=== PATIENT | female | born 1990 | race Caucasian/White ===

== ENCOUNTER 2021-12-18 07:48 | Inpatient (IN) | payer MEDICAID ==
[2021-12-15 16:11] LABS: ALBUMIN 4.2 G/DL (3.4-5.0); ALBUMIN/GLOBULIN RATIO 1.1 (1.1-1.5); ALKALINE PHOSPHATASE 57 IU/L (46-116); BLOOD UREA NITROGEN 6 MG/DL (7-18); BUN/CREATININE RATIO 8.2 (6.6-38.0); CALCIUM 9.2 MG/DL (8.5-10.1); CHLORIDE 106 MMOL/L (99-107); CREATININE 0.73 MG/DL (0.40-0.90); PRE OP ALT 31 U/L (30-65); PRE OP ANION GAP 11 (8-16); PRE OP AST 22 U/L (10-37); PRE OP BILIRUB, TOTAL 0.7 MG/DL (0.0-1.0); PRE OP GLUCOSE 91 MG/DL (70-104); PRE OP POTASSIUM 3.7 MMOL/L (3.4-5.1); PRE OP SODIUM 144 MMOL/L (135-145); TOTAL CARBON DIOXIDE 26.8 MMOL/L (24-32); TOTAL PROTEIN 8.1 G/DL (6.4-8.2); eGFR > 90 ML/MIN
[2021-12-15 16:15] LABS: BASOPHILS # (AUTO) 0.1 X10'3 (0-0.2); BASOPHILS % (AUTO) 0.7 % (0-1); EOSINOPHILS # (AUTO) 0.1 X10'3 (0-0.9); EOSINOPHILS % (AUTO) 1.2 % (0-6); LYMPHOCYTES # (AUTO) 3.5 X10'3 (1.1-4.8); LYMPHOCYTES % (AUTO) 29.8 % (21-51); MEAN CORPUSCULAR HEMOGLOBIN 27.3 PG (27.0-31.0); MEAN CORPUSCULAR HGB CONC 33.4 g/dL (33.0-36.5); MEAN CORPUSCULAR VOLUME 81.6 FL (78-98); MEAN PLATELET VOLUME 7.6 FL (7.4-10.4); MONOCYTES # (AUTO) 0.8 X10'3 (0-0.9); MONOCYTES % (AUTO) 7.1 % (2-12); NEUTROPHILS # (AUTO) 7.1 X10'3 (1.8-7.7); NEUTROPHILS % (AUTO) 61.2 % (42-75); PRE OP HEMATOCRIT 49.2 % (35.0-45.0); PRE OP HEMOGLOBIN 16.4 g/dL (12.0-16.0); PRE OP PLATELET COUNT 488 X10'3 (140-440); RED BLOOD COUNT 6.02 X10'6 (4.20-5.60); RED CELL DISTRIBUTION WIDTH 13.3 % (11.5-14.5)
[2021-12-15 16:16] LABS: HCG SERUM QL NEGATIVE
[~2021-12-18] VITALS: Ht 170.2 cm; Wt 91.2 kg
[2021-12-18] VITALS (30 sets, daily range): BP systolic 119–199; BP diastolic 54–117
[~2021-12-18 07:48] MED LIST: CRAN450T4 PO; ELDE1CAP PO; LYSI100013 PO; MULT-1085 PO; clindamycin-Cleocin 900mg/D5W 50 ML IV ONE; famotidine 20mg tablet PO ONE
[2021-12-18] MEDS ORDERED: ondansetron/PF 4mg/2ml inj ONE ×2 (08:36→13:26)
[2021-12-18] MEDS: ringers solution, lacted 1,000 ML IV SCH ×4 (08:41→22:28)
[2021-12-18] MEDS ORDERED: lidocaine 1%/epinephrine 1:100,000 inj. 50ml multi-dose vial ONE (10:24)
[2021-12-18] MEDS ORDERED: BUPIVAcaine 0.5% inj/PF 30 ML ONE ×2 (10:24→10:27)
[2021-12-18] MEDS ORDERED: vasoPRESSIN 20 units/ml inj. ONE (10:27)
[2021-12-18] MEDS ORDERED: clindamycin phosphate 40gm vag cream ONE (10:27)
[2021-12-18] MEDS ORDERED: fentaNYL /PF 50mcg/ml 5ml ampule ONE (10:39)
[2021-12-18] MEDS ORDERED: propofol inj 20 ML IV ONE (10:39)
[2021-12-18] MEDS ORDERED: midazolam 1 mg/ML 2ml injection ONE (10:39)
[2021-12-18] MEDS ORDERED: rocuronium 10mg/ml inj IV ONE (10:39)
[2021-12-18] MEDS ORDERED: dexamethasone sod phosphate 4mg/ml inj. ONE ×2 (11:19→12:59)
[2021-12-18] MEDS ORDERED: ringers solution, lacted 1,000 ML IV SCH (11:35)
[2021-12-18] MEDS ORDERED: ondansetron/PF 4mg/2ml inj IV PRN (11:35)
[2021-12-18] MEDS ORDERED: meperidine/PF 25mg/ml syringe IV PRN ×3 (11:35)
[2021-12-18] MEDS ORDERED: morphine 4 MG/ML inj SYRINge IV PRN (11:35)
[2021-12-18] MEDS ORDERED: morphine 2 MG/ML inj. syringe IV PRN (11:35)
[2021-12-18] MEDS ORDERED: BUPIVAcaine 0.5% inj/PF 30 ml vial IJ ONE (12:25)
[2021-12-18] MEDS ORDERED: acetaminophen 1,000mg/100ml IV 100 ML IV ONE (12:59)
[2021-12-18] MEDS ORDERED: fluoroscein sod 10% (100mg/ml) 5ml vial ONE (13:20)
[2021-12-18] MEDS ORDERED: sugammadex 200mg/2ml injection IV ONE (13:44)
[2021-12-18] MEDS ORDERED: oxyCODONE/APAP 5-325mg tablet PO PRN ×2 (13:55)
[2021-12-18] MEDS ORDERED: CADD PCA waste documentation MC PRN (13:55)
[2021-12-18] MEDS ORDERED: naloxone 0.4 mg/ml inj IV PRN (13:55)
[2021-12-18] MEDS ORDERED: mag hydrox/Alum hydrox/simeth 30ml oral suspension PO PRN (13:55)
[2021-12-18] MEDS ORDERED: diphenhydrAMINE 50 mg/ml inj IV PRN (13:55)
[2021-12-18] MEDS ORDERED: LORazepam 2 mg/ml vial IV PRN (13:55)
[2021-12-18] MEDS ORDERED: temazepam 15mg capsule PO PRN (13:55)
[2021-12-18] MEDS ORDERED: normal saline 500ML IV soln IV PRN (13:55)
--- NOTE | 2021-12-18 14:00 | NUR ---
Received from OR via BED, accompanied by Anesthesiologist DR HYLTON and report given by Anesthesiologist AND ACCOUNTANT TAX. PT VERY DROWSY, NO S/S OF DISTRESS/DISCOMFORT, ABD W/3 LAP SITES W/BANDAIDS CDI, OSVALDO PAD IN PLACE, ESCOBAR CATHETER TO GRAVITY DRAINAGE W/BRIGHT YELLOW URINE IN DRAINAGE BAG. Addendum: 12/18/21 at 1429 by Makenzie Zuniga RN Amended: Links added.
[2021-12-18] MEDS: proCHLORperazine 10 MG/2 ml inj IV PRN ×2 (14:38→15:07)
[2021-12-18] MEDS: ketorolac trometh. 30mg/ml inj. IV PRN (14:45)
[2021-12-18] MEDS ORDERED: HYDROmorph./NS 0.2 mg/ml CADD 50 ML IV SCH (15:00)
[2021-12-18] MEDS: hydrALAZINE 20mg/ml inj. IV PRN ×3 (15:13→15:38)
[2021-12-18] MEDS: ondansetron/PF 4mg/2ml inj IV PRN (15:37)
[2021-12-18] MEDS: HYDROmorph./NS 0.2 mg/ml CADD 50 ML IV SCH ×4 (15:59→23:00)
[2021-12-18] MEDS ORDERED: labetalol 5mg/ml 20ml inj. IV PRN (16:10)
[2021-12-18] MEDS ORDERED: labetalol 20mg/4ml (5mg/ml) syringe IV ONE (16:12)
[2021-12-18] MEDS ORDERED: labetalol 20mg/4ml (5mg/ml) syringe IV PRN (16:25)
--- NOTE | 2021-12-18 17:10 | NUR ---
Report called to receiving nurse. Transferred via BED W/1 BLACK BACKPACK AND 1 BAG OF SHOES SENT W/PT TO ROOM 346A, BLL, CALL LIGHT GIVEN, SIDE RAILS UP X 3, RECEIVING RN AT BEDSIDE. Special Issues communicated to receiving nurse. YES. Addendum: 12/18/21 at 1731 by Makenzie Zuniga RN Amended: Links added.
--- NOTE | 2021-12-18 18:27 | NUR ---
Problems reprioritized. Patient report given, questions answered & plan of care reviewed with NAVDEEP De Paz.
[2021-12-18] MEDS: docusate sod 100mg capsule PO SCH (19:42)
[2021-12-18] MEDS: simethicone 80mg chew tab PO SCH (19:42)
[2021-12-19] VITALS: BP 152/103
[2021-12-19] MEDS: HYDROmorph./NS 0.2 mg/ml CADD 50 ML IV SCH ×3 (01:00→05:00)
[2021-12-19 04:00] VITALS: BP 146/97
[2021-12-19] MEDS: ringers solution, lacted 1,000 ML IV SCH (06:00)
--- NOTE | 2021-12-19 06:12 | NUR ---
Patient in room [facility] 346. I have received report from NAVDEEP De Paz and had the opportunity to ask questions and assume patient care.
--- NOTE | 2021-12-19 06:17 | NUR ---
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 pt will ambulate this am
[2021-12-19 06:33] LABS: BASOPHILS % (AUTO) 0.2 % (0-1); EOSINOPHILS % (AUTO) 0 % (0-6); HEMATOCRIT 44.9 % (35.0-45.0); HEMOGLOBIN 14.8 g/dl (12.0-16.0); LYMPHOCYTES # (AUTO) 2.3 X10'3 (1.1-4.8); LYMPHOCYTES % (AUTO) 11.3 % (21-51); MEAN CORPUSCULAR HEMOGLOBIN 27.3 PG (27.0-31.0); MEAN CORPUSCULAR HGB CONC 33.1 g/dL (33.0-36.5); MEAN CORPUSCULAR VOLUME 82.4 FL (78-98); MEAN PLATELET VOLUME 7.5 FL (7.4-10.4); MONOCYTES # (AUTO) 1.3 X10'3 (0-0.9); MONOCYTES % (AUTO) 6.4 % (2-12); NEUTROPHILS # (AUTO) 16.5 X10'3 (1.8-7.7); NEUTROPHILS % (AUTO) 82.1 % (42-75); PLATELET COUNT 440 X10'3 (140-440); RED BLOOD COUNT 5.44 X10'6 (4.20-5.60); RED CELL DISTRIBUTION WIDTH 13.6 % (11.5-14.5); WHITE BLOOD COUNT 20.1 X10'3 (4.5-11.0)
[2021-12-19 06:39] LABS: ALBUMIN 3.7 G/DL (3.4-5.0); ANION GAP 8 (8-16); BLOOD UREA NITROGEN 6 MG/DL (7-18); BUN/CREATININE RATIO 12.2 (6.6-38.0); CALCIUM 8.6 MG/DL (8.5-10.1); CHLORIDE 103 MMOL/L (99-107); CREATININE 0.49 MG/DL (0.40-0.90); GLUCOSE 111 MG/DL (70-104); POTASSIUM 4.2 MMOL/L (3.5-5.1); SODIUM 138 MMOL/L (135-145); TOTAL CARBON DIOXIDE 26.8 MMOL/L (24-32); eGFR > 90 ML/MIN
[2021-12-19 08:00] VITALS: BP 179/105
[2021-12-19] MEDS: ondansetron/PF 4mg/2ml inj IV PRN (08:04)
[2021-12-19] MEDS: docusate sod 100mg capsule PO SCH (08:07)
[2021-12-19] MEDS: simethicone 80mg chew tab PO SCH (08:07)
[2021-12-19] MEDS: ketorolac trometh. 30mg/ml inj. IV PRN (08:07)
[2021-12-19] MEDS ORDERED: proMETHazine 25mg tablet PO ONE (09:05)
[2021-12-19] MEDS ORDERED: LORazepam 2 mg/ml vial IV ONE (09:05)
[2021-12-19] MEDS ORDERED: ONDA4TAB12 PO (09:11)
[2021-12-19 09:19] VITALS: BP 149/99
--- NOTE | 2021-12-19 11:00 | NUR ---
VS Haritha, rounded, pt was able to void numerous times post rhodes removal. Pt ambulated halls x3laps. Discharge care and instructions given with pt and spouse. Both verbalized understanding and asked appropriate questions. IV discontinued per protocol, no s/sx of complications, dressing applied. Pt escorted out via wheelchair and staff.
== END 2021-12-19 11:17 | disposition home or self-care (01) | DRG 513 ==
LOC: PAS 07:48 → OBSVTOIN 13:57 → SUR 3N 13:57
PROVIDERS: ADMIT Obstetrics & Gynecology; ATTEND Obstetrics & Gynecology
PROC: 0UT7FZZ Resection of Bilateral Fallopian Tubes, Via Natural or Artificial Opening With Percutaneous Endoscopic Assistance (ICD-10-PCS; 2021-12-18)
PROC: 0DNW4ZZ Release Peritoneum, Percutaneous Endoscopic Approach (ICD-10-PCS; 2021-12-18)
PROC: 0USG4ZZ Reposition Vagina, Percutaneous Endoscopic Approach (ICD-10-PCS; 2021-12-18)
PROC: 0TJB8ZZ Inspection of Bladder, Via Natural or Artificial Opening Endoscopic (ICD-10-PCS; 2021-12-18)
PROC: 0UT9FZZ Resection of Uterus, Via Natural or Artificial Opening With Percutaneous Endoscopic Assistance (ICD-10-PCS; principal; 2021-12-18 10:42)
DX: N92.0 Excessive and frequent menstruation with regular cycle (principal); F41.9 Anxiety disorder, unspecified; R03.0 Elevated blood-pressure reading, without diagnosis of hypertension; K66.0 Peritoneal adhesions (postprocedural) (postinfection); N81.4 Uterovaginal prolapse, unspecified
CPT/HCPCS: 36415; 80048; 80053; 82948; 84703; 85025; 86885; 86900; 86901; 87081; 87635; 93005; A4618; A6222; A6250; A7000; C1758; C9803; G0378; J0131; J0360; J0780; J1100; J1170; J1885; J2175; J2250; J2270; J2405; J2704; J3010; J3490; J7120; Q0169; S0020

== ENCOUNTER 2021-12-19 21:55 | Inpatient (IN) | payer MEDICAID ==
[~2021-12-19] VITALS: Ht 170.2 cm; Wt 88.2 kg
[~2021-12-19 21:55] MED LIST changes: +ONDA4TAB12 PO; -clindamycin-Cleocin 900mg/D5W 50 ML IV ONE; -famotidine 20mg tablet PO ONE
[2021-12-19 22:53] LABS: BASOPHILS % (AUTO) 0.1 % (0-1); HEMOGLOBIN 13.1 g/dl (12.0-16.0); LYMPHOCYTES # (AUTO) 2.4 X10'3 (1.1-4.8); RED CELL DISTRIBUTION WIDTH 13.1 % (11.5-14.5)
[2021-12-19 22:55] LABS: EOSINOPHILS % (AUTO) 0.1 % (0-6); HEMATOCRIT 39.2 % (35.0-45.0); LYMPHOCYTES % (AUTO) 9.7 % (21-51); MEAN CORPUSCULAR HEMOGLOBIN 27.4 PG (27.0-31.0); MEAN CORPUSCULAR HGB CONC 33.4 g/dL (33.0-36.5); MEAN CORPUSCULAR VOLUME 82.1 FL (78-98); MEAN PLATELET VOLUME 7.6 FL (7.4-10.4); MONOCYTES # (AUTO) 1.3 X10'3 (0-0.9); MONOCYTES % (AUTO) 5.1 % (2-12); NEUTROPHILS # (AUTO) 21.2 X10'3 (1.8-7.7); PLATELET COUNT 603 X10'3 (140-440); RED BLOOD COUNT 4.78 X10'6 (4.20-5.60); WHITE BLOOD COUNT 24.9 X10'3 (4.5-11.0)
[2021-12-19 23:02] LABS: ALANINE AMINOTRANSFERASE 24 U/L (12-78); ALBUMIN/GLOBULIN RATIO 1.3 (1.1-1.5); ALKALINE PHOSPHATASE 46 IU/L (46-116); ANION GAP 8 (8-16); ASPARTATE AMINO TRANSFERASE 14 U/L (10-37); BLOOD UREA NITROGEN 9 MG/DL (7-18); BUN/CREATININE RATIO 14.3 (6.6-38.0); CALCIUM 8.9 MG/DL (8.5-10.1); CHLORIDE 103 MMOL/L (99-107); CREATININE 0.63 MG/DL (0.40-0.90); GLUCOSE 173 MG/DL (70-104); LIPASE 99 U/L (73-393); POTASSIUM 4.3 MMOL/L (3.5-5.1); SODIUM 137 MMOL/L (135-145); TOTAL CARBON DIOXIDE 26.5 MMOL/L (24-32); TOTAL PROTEIN 7.1 G/DL (6.4-8.2); eGFR > 90 ML/MIN
[2021-12-19] MEDS ORDERED: normal saline 1000ML IV soln IV ONE (23:25)
[2021-12-19 23:26] LABS: PLATELET ESTIMATE INCREASED; TOTAL CELLS COUNTED 100
[2021-12-19 23:27] LABS: LARGE PLATELETS FEW
[2021-12-19] MEDS ORDERED: levoFLOXACIN-Levaquin 750MG/D5 150 ML IV STA (23:41)
[2021-12-19 23:48] LABS: MAGNESIUM 2.3 MG/DL (1.5-2.4)
[2021-12-20] VITALS (25 sets, daily range): BP systolic 127–159; BP diastolic 82–112
--- NOTE | 2021-12-20 00:10 | NUR ---
pt presents to the ed with c/o abd pain on intensity of 10/10 times one day; the pt describes the pain as aching sensation; the pt states she had a hysterectomy recently and now with pain.
[2021-12-20] MEDS ORDERED: morphine 4 MG/ML inj SYRINge IV ONE (01:00)
[2021-12-20] MEDS ORDERED: ondansetron/PF 4mg/2ml inj IV ONE (01:00)
--- NOTE | 2021-12-20 01:10 | NUR ---
pt heard and observed on stretcher crying, moaning, groaning and wrenching in pain; states her pain level is 10 on intensity/
--- NOTE | 2021-12-20 01:30 | NUR ---
pt medicated per mar
[2021-12-20] MEDS ORDERED: diphenhydrAMINE 25mg capsule PO PRN (02:20)
[2021-12-20] MEDS ORDERED: ondansetron/PF 4mg/2ml inj IV PRN ×4 (02:20→11:45)
[2021-12-20] MEDS ORDERED: ringers solution, lacted 1,000 ML IV SCH ×2 (02:20→10:35)
[2021-12-20] MEDS ORDERED: metoclopramide 5 mg/ml inj IV PRN ×2 (02:20→11:45)
[2021-12-20] MEDS ORDERED: HYDROmorphone inj. 0.5 MG/0.5 ML DISP.SYRIN IV PRN (02:20)
[2021-12-20 03:19] LABS: COLOR,URINE YELLOW (Yellow); GLUCOSE, URINE NEGATIVE (Neg); KETONES,URINE 15 mg/dl (Neg); LEUKOCYTE ESTERASE ,URINE NEGATIVE (Neg); NITRITES, URINE NEGATIVE (Neg); OCCULT BLOOD,URINE LARGE (Neg); PH,URINE 5.5 (4.8-8.0); PROTEIN,URINE NEGATIVE (Neg); URINE HCG NEGATIVE (NEG); UROBILINOGEN,URINE 0.2 E.U/dL (0.2-1.0)
[2021-12-20 03:25] LABS: CLARITY,URINE SLIGHTLY CLOUDY (Clear); UA COLLECTION TYPE NON-SPECIFIED
[2021-12-20 03:26] LABS: BACTERIA,URINE NONE SEEN /HPF (Neg); SQUAMOUS EPITHELIAL CELL,UR FEW /LPF (FEW); WBC,URINE NONE SEEN /HPF (0-4)
[2021-12-20 06:53] LABS: BASOPHILS % (AUTO) 0.1 % (0-1); EOSINOPHILS % (AUTO) 0 % (0-6); HEMATOCRIT 32.5 % (35.0-45.0); HEMOGLOBIN 10.8 g/dl (12.0-16.0); LYMPHOCYTES # (AUTO) 2.8 X10'3 (1.1-4.8); LYMPHOCYTES % (AUTO) 14.5 % (21-51); MEAN CORPUSCULAR HEMOGLOBIN 27.2 PG (27.0-31.0); MEAN CORPUSCULAR HGB CONC 33.2 g/dL (33.0-36.5); MEAN PLATELET VOLUME 7.5 FL (7.4-10.4); MONOCYTES # (AUTO) 1.4 X10'3 (0-0.9); MONOCYTES % (AUTO) 7.1 % (2-12); NEUTROPHILS % (AUTO) 78.3 % (42-75); PLATELET COUNT 458 X10'3 (140-440); RED BLOOD COUNT 3.97 X10'6 (4.20-5.60); RED CELL DISTRIBUTION WIDTH 13.3 % (11.5-14.5); WHITE BLOOD COUNT 19.2 X10'3 (4.5-11.0)
--- NOTE | 2021-12-20 06:59 | NUR ---
Pt C/o chest pain diffusely across upper chest. Pt states pain making it hard to breath. Pt with minimal effort at deep breath for auscultation. Pt rolled to her back for ekg says abd pain radiating and "could be the reason my chest hurts". Will eval EKG and pain meds
[2021-12-20 07:01] LABS: APTT 25 SECONDS (22-32)
[2021-12-20 07:05] LABS: ALBUMIN 3.4 G/DL (3.4-5.0); ANION GAP 6 (8-16); BLOOD UREA NITROGEN 7 MG/DL (7-18); BUN/CREATININE RATIO 12.7 (6.6-38.0); CALCIUM 8.3 MG/DL (8.5-10.1); CHLORIDE 106 MMOL/L (99-107); CREATININE 0.55 MG/DL (0.40-0.90); GLUCOSE 114 MG/DL (70-104); POTASSIUM 4.1 MMOL/L (3.5-5.1); SODIUM 140 MMOL/L (135-145); TOTAL CARBON DIOXIDE 27.8 MMOL/L (24-32); eGFR > 90 ML/MIN
[2021-12-20] MEDS ORDERED: clindamycin-Cleocin 900mg/D5W 50 ML IV ONE (08:10)
[2021-12-20] MEDS ORDERED: gentamicin in saline, iso-osm 80 MG/50 ML premix IV ONE (08:10)
[2021-12-20] MEDS: simethicone 80mg chew tab PO SCH ×3 (08:11→17:45)
[2021-12-20] MEDS ORDERED: gentamicin inj 80 MG in normal saline 100ml IV soln 98 ML IV ONE (09:00)
[2021-12-20] MEDS ORDERED: BUPIVAcaine 0.5% inj/PF 30 ML ONE ×2 (09:00→10:40)
[2021-12-20] MEDS ORDERED: gentamicin 40 MG/1 ML inj ONE (09:23)
[2021-12-20] MEDS ORDERED: clindamycin phosphate 150mg/ml inj. ONE (09:23)
[2021-12-20] MEDS ORDERED: fentaNYL /PF 50mcg/ml 5ml ampule ONE (09:33)
[2021-12-20] MEDS ORDERED: midazolam 1 mg/ML 2ml injection ONE (09:33)
[2021-12-20] MEDS ORDERED: rocuronium 10mg/ml inj IV ONE (09:33)
[2021-12-20] MEDS ORDERED: propofol inj 20 ML IV ONE (09:33)
[2021-12-20] MEDS ORDERED: meperidine/PF 25mg/ml syringe IV PRN ×3 (10:35)
[2021-12-20] MEDS ORDERED: morphine 4 MG/ML inj SYRINge IV PRN (10:35)
[2021-12-20] MEDS ORDERED: proCHLORperazine 10 MG/2 ml inj IV PRN (10:35)
[2021-12-20] MEDS ORDERED: morphine 2 MG/ML inj. syringe IV PRN (10:35)
[2021-12-20] MEDS ORDERED: TALC 4 GM VIAL ***intrapleural administration only IX ONE (10:40)
[2021-12-20] MEDS ORDERED: ondansetron/PF 4mg/2ml inj ONE (11:12)
[2021-12-20] MEDS ORDERED: dexamethasone sod phosphate 4mg/ml inj. ONE (11:12)
[2021-12-20] MEDS ORDERED: glycopyrrolate 0.2mg/ml inj ONE (11:42)
[2021-12-20] MEDS ORDERED: neostigmine methylsulfate 1 MG/ML 10ml vial ONE (11:42)
[2021-12-20] MEDS ORDERED: HYDROcodone/acetaminophen 5mg/325mg tablet PO PRN ×2 (11:45)
[2021-12-20] MEDS ORDERED: magnesium hydroxide 30ml (MOM) UD suspension PO PRN (11:45)
[2021-12-20] MEDS ORDERED: normal saline 500ML IV soln IV PRN (11:45)
[2021-12-20] MEDS ORDERED: diphenhydrAMINE 50 mg/ml inj IV PRN (11:45)
--- NOTE | 2021-12-20 11:45 | NUR ---
PT ARRIVED TO RR VIA BED ACCOMPANIED BY DR HYLTON-ANESTHESIA REPORT GIVEN, VSS, DENIES PAIN, 20 PIV TO R A/C, SCDS IN PLACE, BANDAIDS X 4-CDI WITH OSVALDO PAD SCANT DRAINAGE, F/C PRESENT-YELLOW URINE DRAINING.
[2021-12-20] MEDS ORDERED: naloxone 0.4 mg/ml inj IV PRN (12:00)
[2021-12-20] MEDS ORDERED: CADD PCA waste documentation MC PRN (12:00)
[2021-12-20] MEDS ORDERED: simethicone 80mg chew tab PO SCH (13:00)
[2021-12-20] MEDS: HYDROmorph./NS 0.2 mg/ml CADD 50 ML IV SCH ×7 (13:00→23:00)
--- NOTE | 2021-12-20 13:14 | NUR ---
PT AWAKE, RESTING QUIETLY, PAIN MUCH BETTER THAN BEFORE PROCEDURE 12/04, RAGHU MARIE STARTED-PT EDUCATED RE: USE, TOLERATING ICE CHIPS
--- NOTE | 2021-12-20 13:32 | NUR ---
report received, awaiting patient arrival from OR
--- NOTE | 2021-12-20 13:55 | NUR ---
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
[2021-12-20] MEDS: ringers solution, lacted 1,000 ML IV SCH ×2 (14:52→19:45)
--- NOTE | 2021-12-20 18:56 | NUR ---
Received patient from [facility] mid-day. Patient is doing well after surgery. Feeling much better. No current concerns. Report given to Dafne SETHI.
[2021-12-20] MEDS: docusate sod 100mg capsule PO SCH (19:39)
[2021-12-21] VITALS: BP 131/86
[2021-12-21] MEDS: HYDROmorph./NS 0.2 mg/ml CADD 50 ML IV SCH ×5 (01:00→09:00)
[2021-12-21] MEDS: ringers solution, lacted 1,000 ML IV SCH ×2 (03:45→09:31)
[2021-12-21 06:43] LABS: BASOPHILS % (AUTO) 0.2 % (0-1); EOSINOPHILS # (AUTO) 0.1 X10'3 (0-0.9); EOSINOPHILS % (AUTO) 0.6 % (0-6); HEMATOCRIT 23.9 % (35.0-45.0); LYMPHOCYTES # (AUTO) 3.6 X10'3 (1.1-4.8); MEAN CORPUSCULAR HEMOGLOBIN 27.5 PG (27.0-31.0); MEAN CORPUSCULAR HGB CONC 33.2 g/dL (33.0-36.5); MEAN CORPUSCULAR VOLUME 82.7 FL (78-98); MEAN PLATELET VOLUME 7.3 FL (7.4-10.4); MONOCYTES % (AUTO) 7.5 % (2-12); NEUTROPHILS % (AUTO) 65.7 % (42-75); PLATELET COUNT 313 X10'3 (140-440); RED BLOOD COUNT 2.89 X10'6 (4.20-5.60); RED CELL DISTRIBUTION WIDTH 13.2 % (11.5-14.5); WHITE BLOOD COUNT 13.8 X10'3 (4.5-11.0)
[2021-12-21 06:52] LABS: ALBUMIN 2.9 G/DL (3.4-5.0); ANION GAP 3 (8-16); BLOOD UREA NITROGEN 5 MG/DL (7-18); CALCIUM 8.3 MG/DL (8.5-10.1); CHLORIDE 107 MMOL/L (99-107); GLUCOSE 102 MG/DL (70-104); POTASSIUM 3.8 MMOL/L (3.5-5.1); SODIUM 141 MMOL/L (135-145); eGFR > 90 ML/MIN
[2021-12-21 07:00] VITALS: BP 134/88
[2021-12-21] MEDS: simethicone 80mg chew tab PO SCH ×3 (07:07→17:48)
[2021-12-21] MEDS: docusate sod 100mg capsule PO SCH ×2 (07:07→20:04)
[2021-12-21] MEDS: LORazepam 2 mg/ml vial IV PRN ×2 (09:36→23:09)
[2021-12-21 11:00] VITALS: BP 126/82
[2021-12-21] MEDS: ibuprofen tablet 400 MG TABLET PO SCH ×2 (11:38→17:48)
[2021-12-21] MEDS: iron sucrose complex injection 200 MG in normal saline 100ml IV soln 100 ML IV SCH (11:39)
[2021-12-21 14:27] LABS: BASOPHILS # (AUTO) 0.1 X10'3 (0-0.2); BASOPHILS % (AUTO) 0.8 % (0-1); EOSINOPHILS # (AUTO) 0.2 X10'3 (0-0.9); EOSINOPHILS % (AUTO) 1.3 % (0-6); HEMATOCRIT 24.9 % (35.0-45.0); HEMOGLOBIN 8.4 g/dl (12.0-16.0); LYMPHOCYTES # (AUTO) 4.2 X10'3 (1.1-4.8); MEAN CORPUSCULAR HEMOGLOBIN 27.5 PG (27.0-31.0); MEAN CORPUSCULAR HGB CONC 33.6 g/dL (33.0-36.5); MEAN CORPUSCULAR VOLUME 81.9 FL (78-98); MEAN PLATELET VOLUME 7.4 FL (7.4-10.4); MONOCYTES % (AUTO) 7.8 % (2-12); NEUTROPHILS # (AUTO) 6.9 X10'3 (1.8-7.7); NEUTROPHILS % (AUTO) 56.1 % (42-75); PLATELET COUNT 300 X10'3 (140-440); RED BLOOD COUNT 3.04 X10'6 (4.20-5.60); RED CELL DISTRIBUTION WIDTH 12.8 % (11.5-14.5); WHITE BLOOD COUNT 12.4 X10'3 (4.5-11.0)
--- NOTE | 2021-12-21 18:37 | NUR ---
Report given to Caesar SETHI. Patient eating dinner. No current concerns or distress. at bedside.
[2021-12-21 20:00] VITALS: BP 115/67
[2021-12-21 22:45] VITALS: BP 128/86
[2021-12-21 22:50] VITALS: BP 123/84
--- NOTE | 2021-12-21 23:06 | NUR ---
Patient reported feeling the same symptoms that brought her back to the hospital. Vitals were taken 123/84 HR: 96 96% RA 98.9. Surgeon was notified and no new orders were given. Ativan was given for anxiety. Patient reassured that we will check on her through out the night,
[2021-12-22] VITALS: BP 123/84
[2021-12-22 06:44] LABS: BASOPHILS # (AUTO) 0.1 X10'3 (0-0.2); BASOPHILS % (AUTO) 1.1 % (0-1); EOSINOPHILS # (AUTO) 0.4 X10'3 (0-0.9); EOSINOPHILS % (AUTO) 3.5 % (0-6); HEMATOCRIT 26.8 % (35.0-45.0); LYMPHOCYTES # (AUTO) 3.4 X10'3 (1.1-4.8); MEAN CORPUSCULAR HEMOGLOBIN 27.6 PG (27.0-31.0); MEAN CORPUSCULAR HGB CONC 33.6 g/dL (33.0-36.5); MEAN CORPUSCULAR VOLUME 82.1 FL (78-98); MEAN PLATELET VOLUME 7.3 FL (7.4-10.4); MONOCYTES # (AUTO) 0.8 X10'3 (0-0.9); NEUTROPHILS # (AUTO) 6.3 X10'3 (1.8-7.7); NEUTROPHILS % (AUTO) 57.4 % (42-75); PLATELET COUNT 342 X10'3 (140-440); RED BLOOD COUNT 3.26 X10'6 (4.20-5.60); RED CELL DISTRIBUTION WIDTH 13.3 % (11.5-14.5)
--- NOTE | 2021-12-22 06:47 | NUR ---
Report given to NAVDEEP Beard, for continuation of care. Patient remains afebrile and stable
--- NOTE | 2021-12-22 06:51 | NUR ---
Patient in room [facility]. I have received report from Caesar SETHI and had the opportunity to ask questions and assume patient care.
[2021-12-22 07:00] VITALS: BP 128/80
[2021-12-22] MEDS: simethicone 80mg chew tab PO SCH (08:05)
[2021-12-22] MEDS: iron sucrose complex injection 200 MG in normal saline 100ml IV soln 100 ML IV SCH (08:05)
[2021-12-22] MEDS: ibuprofen tablet 400 MG TABLET PO SCH (08:06)
[2021-12-22] MEDS: docusate sod 100mg capsule PO SCH (08:06)
[2021-12-22] MEDS ORDERED: BUS15T PO (09:02)
[2021-12-22] MEDS ORDERED: busPIRone 15mg tablet PO SCH (13:00)
--- NOTE | 2021-12-22 14:52 | NUR ---
patient seen by Dr Sinclair is for discharge. patient has been up and voided, medicated for pain with good result Bandaides in place x2 CDI. All DC instructions given to patient. patient DC home with via private car to home in stable condition.
== END 2021-12-22 11:51 | disposition home or self-care (01) | DRG 229 ==
LOC: ER 12-20 01:51 → ED HOLD 12-20 02:33 → SUR 3N 12-20 04:20
PROVIDERS: ADMIT Obstetrics & Gynecology; ATTEND Obstetrics & Gynecology
PROC: BW211ZZ Computerized Tomography (CT Scan) of Abdomen and Pelvis using Low Osmolar Contrast (ICD-10-PCS; 2021-12-19)
PROC: 0WCJ4ZZ Extirpation of Matter from Pelvic Cavity, Percutaneous Endoscopic Approach (ICD-10-PCS; principal; 2021-12-20 09:26)
DX: K66.1 Hemoperitoneum (principal); K65.9 Peritonitis, unspecified; D62 Acute posthemorrhagic anemia; F41.9 Anxiety disorder, unspecified; J45.909 Unspecified asthma, uncomplicated; Z90.710 Acquired absence of both cervix and uterus; Z98.891 History of uterine scar from previous surgery; Z88.1 Allergy status to other antibiotic agents; Z88.7 Allergy status to serum and vaccine; Z88.8 Allergy status to other drugs, medicaments and biological substances
CPT/HCPCS: 36415; 74177; 80048; 80053; 81001; 81025; 82948; 83605; 83690; 83735; 84145; 85007; 85025; 85610; 85730; 86885; 86900; 86901; 86920; 87040; 99285; A4618; A7000; C1758; G0378; J1100; J1170; J1580; J1756; J1956; J2060; J2250; J2270; J2405; J2704; J2710; J3010; J3490; J7030; J7120; S0020